=== PATIENT | male | born 1950 | race Caucasian/White ===

== ENCOUNTER 2023-02-16 07:14 | Emergency (ER) | payer MEDICARE, OTHER ==
[2023-02-16 07:52] LABS: BASOPHILS # (AUTO) 0.1 10^3/uL (0.0-0.1); BASOPHILS % (AUTO) 0.4 %; EOSINOPHILS % (AUTO) 0.1 %; HCT - HEMATOCRIT 36.8 % (42.0-52.0); HGB - HEMOGLOBIN 12.5 g/dL (14.0-18.0); LYMPHOCYTES # (AUTO) 1.2 10^3/uL (1.5-3.5); LYMPHOCYTES % (AUTO) 8.4 %; MEAN CORPUSCULAR VOLUME 94.1 fL (80.0-94.0); MEAN PLATELET VOLUME 8.4 fL (7.4-11.4); MONOCYTES # (AUTO) 1.3 10^3/uL (0.0-1.0); MONOCYTES % (AUTO) 9.2 %; NEUTROPHILS # (AUTO) 11.8 10^3/uL (1.5-6.6); NEUTROPHILS % (AUTO) 81.4 %; PLT - PLATELET COUNT 277 10^3/uL (130-450); RED BLOOD COUNT 3.91 10^6/uL (4.70-6.10); RED CELL DISTRIBUTION WIDTH 11.9 % (12.0-15.0); WHITE BLOOD COUNT 14.5 x10^3/uL (4.8-10.8)
[2023-02-16 08:08] LABS: ALBUMIN 3.4 g/dL (3.2-5.5); ALBUMIN/GLOBULIN RATIO 0.8 (1.0-2.2); BILIRUBIN,TOTAL 0.7 mg/dL (0.2-1.0); CALCIUM 8.9 mg/dL (8.5-10.3); CREATININE 1.7 mg/dL (0.6-1.2); POTASSIUM 3.7 mmol/L (3.5-5.0); TOTAL PROTEIN 7.9 g/dL (6.7-8.2)
[2023-02-16] MEDS ORDERED: LIDOCAINE VISCOUS 2% 15 ML ORAL SYRINGE MM STA ×3 (08:20→10:59)
[2023-02-16] MEDS ORDERED: SODIUM CHLORIDE 0.9% 1,000 ML IV STA (08:20)
[2023-02-16] MEDS ORDERED: MAG HYDROX/AL HYDROX/SIMETH 30 ML UDC PO STA ×3 (08:21→10:59)
--- NOTE | 2023-02-16 08:23 | ED Physician Documentation ---
PD HPI ABD PAIN - Stated complaint Stated Complaint: ABD PX - Chief complaint Chief Complaint: Abd Pain - History obtained from History obtained from: Patient, Family (brother) - History of Present Illness Timing - onset: How many weeks ago (1) Timing - duration: Weeks (1) Timing - details: Gradual onset, Still present Quality: Sharp, Pain Location: Epigastric Improved by: Other (nothing) Worsened by: Eating, Palpation Associated symptoms: Vomiting. No: Melena, Hematochezia, Dysuria, Chest pain Similar symptoms before: Diagnosis (ulcer/reflux) Recently seen: Not recently seen - Additional information Additional information: Andriy Mosley is a 72-year-old male with a history of reflux esophagitis who over the past week has developed epigastric abdominal pain and despite discontinuing his ibuprofen and appear he continues to have pain. He has been able to take 1 pantoprazole daily. Review of Systems Constitutional: denies: Fever, Chills Eyes: denies: Decreased vision Ears: denies: Ear pain Nose: denies: Rhinorrhea / runny nose, Congestion Throat: denies: Sore throat Cardiac: denies: Chest pain / pressure, Palpitations, Pedal edema, Calf pain Respiratory: reports: Cough (similar to always). denies: Dyspnea, Wheezing GI: reports: Abdominal Pain, Vomiting. denies: Constipation, Diarrhea, Hematemesis, Bloody / black stool : denies: Dysuria, Frequency Skin: denies: Rash Musculoskeletal: denies: Neck pain, Back pain, Extremity pain Neurologic: reports: Generalized weakness. denies: Focal weakness, Numbness PD PAST MEDICAL HISTORY - Past Medical History Past Medical History: Yes Respiratory: COPD Endocrine/Autoimmune: HyPOthyroidism GI: Ulcers Psych: Anxiety - Past Surgical History Past Surgical History: No Ortho: Hip replacement, Other - Present Medications Home Medications: Ambulatory Orders Medication Instructions Recorded Confirmed Fluticasone/Salmeterol [Advair Hfa 12 gm IH DAILY 02/16/23 02/16/23 230-21 Mcg Inhaler] Levothyroxine [Synthroid] 125 mcg PO QDAC 02/16/23 02/16/23 Pantoprazole [Protonix] 40 mg PO DAILY 02/16/23 02/16/23 Sucralfate [Carafate] 1 gm PO ACHS #60 tablet 02/16/23 hydrOXYzine HCL [Hydroxyzine HCl] 25 mg PO DAILY 02/16/23 02/16/23 - Allergies Allergies/Adverse Reactions: Allergies Allergy/AdvReac Type Severity Reaction Status Date / Time No Known Drug Allergies Allergy Verified 02/16/23 07:28 - Social History Does the pt smoke?: Yes Smoking Status: Current every day smoker PD ED PE NORMAL - Vitals Vital signs reviewed: Yes (tachy with wide pulse pressure) - General General: Alert and oriented X 3, Well developed/nourished, Other (bearded male with stick inserter tone and flattened affect needs assistance to sit up in bed for exam. ) - HEENT HEENT: Atraumatic, PERRL, EOMI, Other (dry mucous membranes ) - Neck Neck: Supple, no meningeal sign, No bony TTP - Cardiac Cardiac: No murmur, Other (tachy to 100) - Respiratory Respiratory: No respiratory distress, Clear bilaterally - Abdomen Abdomen: Normal bowel sounds, Soft, Non distended, No organomegaly, Other (mild epigastric tenderness without garding or rebound. ) - Back Back: No CVA TTP, No spinal TTP - Derm Derm: Normal color, Warm and dry, No rash, Other (skin tenting present is mild) - Extremities Extremities: No deformity, Normal ROM s pain, No edema - Neuro Neuro: No motor deficit, No sensory deficit, Normal speech - Psych Psych: Normal mood, Normal affect Results - Vitals Vitals: Vital Signs - 24 hr 02/16/23 02/16/23 02/16/23 07:26 07:39 09:32 Temperature 36.7 C Heart Rate 128 H 99 82 Respiratory 20 22 16 Rate Blood Pressure 122/59 L 121/70 156/86 H O2 Saturation 99 98 97 Oxygen O2 Source Room air - Labs Labs: Laboratory Tests 02/16/23 02/16/23 02/16/23 07:42 07:42 10:03 WBC 14.5 H RBC 3.91 L Hgb 12.5 L Hct 36.8 L MCV 94.1 H MCH 32.0 H MCHC 34.0 RDW 11.9 L Plt Count 277 MPV 8.4 Neut # (Auto) 11.8 H Lymph # (Auto) 1.2 L [place] # (Auto) 1.3 H Eos # (Auto) 0.0 Baso # (Auto) 0.1 Absolute Nucleated RBC 0.00 Nucleated RBC % 0.0 Sodium 127 L Potassium 3.7 Chloride 90 L Carbon Dioxide 25 Anion Gap 12.0 BUN 24 H Creatinine 1.7 H Estimated GFR (MDRD) 40 L Glucose 150 H Calcium 8.9 Total Bilirubin 0.7 AST 17 ALT 12 Alkaline Phosphatase 60 Total Protein 7.9 Albumin 3.4 Globulin 4.5 H Albumin/Globulin Ratio 0.8 L Lipase 31 Urine Color YELLOW Urine Clarity HAZY Urine pH 6.0 Ur Specific [place] <=1.005 Urine Protein 30 H Urine Glucose (UA) NEGATIVE Urine Ketones NEGATIVE Urine Occult Blood SMALL H Urine Nitrite NEGATIVE Urine Bilirubin NEGATIVE Urine Urobilinogen 0.2 (NORMAL) Ur Leukocyte Esterase SMALL H Urine RBC 0-5 Urine WBC 11-25 H Urine WBC Clumps PRESENT Ur Squamous Epith Cells NONE SEEN Urine Bacteria Few Ur Microscopic Review INDICATED Urine Culture Comments INDICATED Procedures - IVC sono (time) 0800 Bedside IVC sono: IVC measures (cm) (0.9), Dehydration (est 2 liter deficit) PD Medical Decision Making - ED course Complexity details: reviewed old records, reviewed results, re-evaluated patient, considered differential, d/w patient, d/w family Reviewed Lab Results: We reviewed a complete blood count which showed a mildly elevated white blood cell count of 14.5 a hemoglobin mildly depressed at 12.5 and hematocrit depressed at 36.8. Platelets were normal at 277,000, Electrolytes were remarkable for a serum sodium low at 127 BUN elevated at 24 creatinine elevated at 1.7. Liver function was normal urinalysis showed indication for infection and made grade or culture in a patient without urinary symptoms ED course: 72-year-old male with epigastric pain decreased appetite and pain after eating as well as some dry heaves has a history of peptic ulcer disease and has been taking ibuprofen regularly. He has regular consumption of alcohol. Despite stopping his alcohol and ibuprofen he continued to have this pain. He presented to the emergency department today we were able to administer a GI cocktail of viscous lidocaine and Mylanta with minimal improvement. He was subsequently administered Carafate with some further improvement. He then had a more definite improvement with a second dose of viscous lidocaine and he was administered further Carafate. He felt comfortable at the time of discharge. My interpretation of this is that the patient had some peptic ulcer disease that is worse with use of ibuprofen and I have asked the patient to discontinue the ibuprofen. We will add Carafate into his regimen. The patient was hydrated as well. He does have evidence of infection in the urine and no evidence of specific symptoms. This was not treated. A culture is pending. Departure - Departure Disposition: 01 Home, Self Care Clinical Impression: Peptic disease Condition: Stable Instructions: ED PUD Follow-Up: YARELI HADDAD MD [Primary Care Provider] - Prescriptions: Sucralfate [Carafate] 1 gm PO ACHS #60 tablet Comments: Andriy, today it looks like the pain you are having in your stomach is related to an ulcer or erosion of the stomach lining. We are adding into your treatment some Carafate. It has been e-scribed to the [facility] in [place]. You will need to take this half an hour before you eat and at bedtime. This is a type of "Band-Aid" for your stomach. It is imperative to discontinue the ibuprofen. Continue to take your pantoprazole. A follow up with your doctor is indicated. If you are not improving or worsen we are here. . Discharge Date/Time: 02/16/23 12:29
[2023-02-16] MEDS ORDERED: iohexoL-300 100 ML VIAL ONE (08:28)
[2023-02-16] MEDS ORDERED: SUCRALFATE 1 GM/10 ML UDC PO STA ×2 (08:50→12:05)
[2023-02-16 09:34] VITALS: BP 156/86
--- NOTE | 2023-02-16 09:35 | CT Report ---
PROCEDURE: ABDOMEN/PELVIS W INDICATIONS: epigastric pain CONTRAST: 100ml Omnipaque 300 TECHNIQUE: After the administration of weight appropriate dose of intravenous contrast, 5 mm thick sections acqu ired from the diaphragms to the symphysis. 5 mm thick coronal and sagittal reformats were acquired. For radiation dose reduction, the following was used: automated exposure control, adjustment of mA and/or kV according to patient size. COMPARISON: None. FINDINGS: Image quality: Excellent. Lung bases and heart: Bilateral centrilobular pulmonary emphysematous changes. Mild bibasilar atelect asis. Small hiatal hernia. Heart size appears normal. No pericardial effusion. Liver: No solid mass. Gallbladder and biliary tree: No radiopaque stones or wall thickening. No biliary dilation. Spleen: No splenomegaly. Pancreas: No pancreatic ductal dilation. Adrenals: No adrenal nodule. Kidneys and ureters: No hydronephrosis. No renal cystic lesion which requires follow up. No solid mas s. Bowel and peritoneum: No bowel distension. No pathologic free fluid. Diverticulosis without evidence of diverticulitis. A few loops of fluid-filled small bowel without evidence for acute inflammatory ch anges or obstruction. Lymph nodes: No central or retroperitoneal adenopathy. Vessels: No infrarenal aortic aneurysm. Scattered atherosclerotic calcifications. PELVIS Reproductive organs: Mild prominence of the prostate gland. Bladder: No wall thickness, accounting for underdistension. Pelvic lymph nodes: No pelvic adenopathy by size criteria. Bones: No aggressive osseous abnormality. No acute compression fracture. Multilevel spondylosis. Stat us post ORIF of the right femoral neck. Other: No significant ventral or inguinal hernia. Small fat-containing umbilical hernia without acute inflammation. IMPRESSION: 1. CT abdomen and pelvis without acute abnormalities to explain patient's symptoms. No acute inflamma tory changes of the visualized gallbladder or pancreas. 2. Small hiatal hernia. 3. Colonic diverticulosis without acute diverticulitis. 4. A few loops of fluid-filled small bowel without wall thickening or inflammatory change. This is no nspecific and may represent enteritis, either infectious or inflammatory process. 5. Atherosclerosis. 6. Pulmonary emphysematous changes. 7. Other chronic findings as above. Reviewed by: Felipe Houser MD on 02/16/2023 9:34 AM PDT Approved by: Felipe Houser MD on 02/16/2023 9:34 AM PDT Station ID: [id number]
[2023-02-16] MEDS ORDERED: iohexoL-300 100 ML VIAL IVP ONE (10:02)
[2023-02-16 10:13] LABS: BILIRUBIN,URINE NEGATIVE (NEGATIVE); GLUCOSE, URINE (UA) NEGATIVE (NEGATIVE); KETONES,URINE (UA) NEGATIVE (NEGATIVE); LEUKOCYTE ESTERASE, URINE SMALL (NEGATIVE); NITRITE,URINE NEGATIVE (NEGATIVE); OCCULT BLOOD,URINE SMALL (NEGATIVE); PROTEIN,URINE 30 mg/dL (NEGATIVE); UROBILINOGEN,URINE 0.2 (NORMAL) E.U./dL (NORMAL)
[2023-02-16 10:14] LABS: CLARITY,URINE HAZY (CLEAR)
[2023-02-16 10:25] LABS: BACTERIA,URINE Few /HPF (None Seen); RBC,URINE 0-5 /HPF (0-5); SQUAMOUS EPITHELIAL CELL,UR NONE SEEN (<= Few); WBC CLUMPS,URINE PRESENT
--- NOTE | 2023-02-18 14:02 | MISCELLANEOUS PROVIDER NOTE ---
Miscellaneous Provider Note - - Note: Reviewed urine culture results with patient. Discussed plan for antibiotic treatment. He is agreeable. Prescription was sent to [facility] in [place]
== END 2023-02-16 12:29 | disposition home or self-care (01) ==
LOC: ED 07:14
DX: K30 Functional dyspepsia (principal); F17.200 Nicotine dependence, unspecified, uncomplicated
CPT/HCPCS: 36415; 74177; 80053; 81001; 83690; 85025; 87086; 96360; 99284; A9270; Q9967; 81003; 87077

== ENCOUNTER 2024-03-01 10:49 | Outpatient (CLI) | payer MEDICARE, OTHER | END 2024-03-01 10:50 | disposition home or self-care (01) | LOC: RT 10:49 | PROVIDERS: ATTEND Internal Medicine Critical Care Medicine | DX: J44.9 Chronic obstructive pulmonary disease, unspecified (principal); J98.11 Atelectasis | CPT/HCPCS: 94060; 94727; 94729 ==

== ENCOUNTER 2025-09-19 17:28 | Inpatient (IN) ==
[2025-09-19 17:55] LABS: HCT - HEMATOCRIT 35.8 % (42.0-52.0); HGB - HEMOGLOBIN 11.8 g/dL (14.0-18.0); MEAN PLATELET VOLUME 9.2 fL (7.4-11.4); NRBC ABSOLUTE COUNT (AUTO) 0.00 x10^3/uL; NUCLEATED RED BLOOD CELLS AUTO 0.0 /100WBC; PLT - PLATELET COUNT 242 10^3/uL (130-450); RED CELL DISTRIBUTION WIDTH 13.2 % (12.0-15.0)
--- OUTSIDE RECORDS SUMMARY | 2025-09-19 17:55 | EXTERNAL MEDICAL SUMMARY RPT | Continuity of Care Document ---
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 [facility] 2025-07-30 09:59 Alcohol-induced chronic pancrea titis [facility] 2025-07-30 10:01 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 [facility] 2025-07-30 10:01 Alcohol-induced chronic pancrea [facility] 2025-07-30 11:04 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 CREATININE 2025-07-30 10:00 [facility] 1.2 mg/dl As of April 2023 testing method has changed, this may include reference ranges. ALBUMIN/GLOBULIN RATIO 2025-07-30 10:00 [facility] 1.3 (missing) (missing) CHLORIDE 2025-07-30 10:00 [facility] 103 mmol/l As of April 2023 testing method has changed, this may include reference ranges. ALT ALANINE AMINOTRANSFERASE 2025-07-30 10:00 [facility] 11 iu/l As of April 2023 testing method has changed, this may include reference ranges. AMYLASE 2025-07-30 10:00 [facility] 124 u/l As of April 2023 testing method has changed, this may include reference ranges. AST ASPARTATE AMINOTRANSFERASE 2025-07-30 10:00 [facility] 13 iu/l As of April 2023 testing method has changed, this may include reference ranges. SODIUM 2025-07-30 10:00 [facility] 137 mmol/l Unknown BUN - BLOOD UREA NITROGEN 2025-07-30 10:00 [facility] 21 mg/dl As of Apr testing method has changed, this may include reference ranges. LIPASE 2025-07-30 10:00 [facility] 21 u/l As of April 2023 testing method has changed, this may include reference ranges. CARBON DIOXIDE - CO2 2025-07-30 10:00 [facility] 28 mmol/l As of April 2023 testing method has changed, this may include reference ranges. GLOBULIN 2025-07-30 10:00 [facility] 3.2 g/dl (missing) ALBUMIN 2025-07-30 10:00 [facility] 4.3 g/dl As of April 2023 testing method has changed, this may include reference ranges. POTASSIUM 2025-07-30 10:00 [facility] 4.5 mmol/l As of April 2023 testing method has changed, this may include reference ranges. GFR - MDRD 2025-07-30 10:00 [facility] 59 (in g) The IDMS-traceable MDRD Study Equation has been validated extensively in and populations between the ages of 18 and 70 with impaired kidney function (eGFR < 60 mL/min/1.73m2) and has shown good performance for patients with all common causes of kidney disease. Although this equation has not been validated for patients older than 70, an MDRD-derived eGFR may still be a useful tool for providers caring for patients older than 70. References: http://www.nkdep. nih.gov/lab-evalu ation/gfr/creatin ine-stand ardization, last updated December 2011. ANION GAP 2025-07-30 10:00 [facility] 6.0 (missing ) (missing) ALKALINE PHOSPHATASE 2025-07-30 10:00 [facility] 63 iu/l As of April 2023 testing method has changed, this may include reference ranges. TOTAL PROTEIN 2025-07-30 10:00 [facility] 7.5 g/dl As of April 2023 testing method has changed, this may include reference ranges. CALCIUM 2025-07-30 10:00 [facility] 9.8 mg/dl As of April 2023 testing method has changed, this may include reference ranges. GLUCOSE 2025-07-30 10:00 [facility] 90 mg/dl As of April 2023 testing method has changed, this may include reference ranges. Result panel 2 MISC TEST [facility] 2025-07-30 13:00 [facility] COMMENT (missing) [id number] PANCREATIC ELASTASE, FECAL Test Ordered: [id number] Pancreatic Elastase, Fecal Pancreatic Elastase, Fecal >800 [facility] Units of Measure: ug Elast./g Reference Range: >200 Severe Pancreatic Insufficiency: <100 Moderate Pancreatic Insufficiency: 100 - 200 Normal: >200 Performed at: [facility], [place] [id number] Associate Merchandiser: Germain Allen MD, Phone: [phone] Performed at: [facility], [place], [place] [id number] Associate Merchandiser: Avi Wise MD, Phone: [phone] Social History date description facility
[2025-09-19 18:08] LABS: ALT ALANINE AMINOTRANSFERASE 8.0 IU/L (10-60); AST ASPARTATE AMINOTRANSFERASE 11.0 IU/L (10-42); BUN - BLOOD UREA NITROGEN 46.0 mg/dL (6-20); CARBON DIOXIDE - CO2 23.0 mmol/L (21-32); CREATININE 1.4 mg/dL (0.6-1.3); GFR - MDRD 50.0 (>89)
[2025-09-19] MEDS: SODIUM CHLORIDE 0.9% 1,000 ML IV STA ×2 (18:53→21:27)
[2025-09-19] MEDS: ONDANSETRON 4 MG/2 ML VIAL IVP STA ×2 (18:57→21:16)
[2025-09-19] MEDS: MORPHINE 2 MG/ML CARPUJECT IVP STA ×2 (19:33)
[2025-09-19] MEDS: HYDROmorphone 0.5 MG/0.5 ML SYRINGE IVP STA (19:44)
--- NOTE | 2025-09-19 19:53 | CT Report ---
PROCEDURE: CT Abdomen/Pelvis W INDICATIONS: epigastric pain, hx of pancreatitis CONTRAST: [id number] 100ML TECHNIQUE: After the administration of intravenous contrast, a CT scan of the abdomen and pelvis was performed. Images were recorded and evaluated at appropriate window settings. Reformats: coronal and sagittal. For radiation dose reduction, the following was used: automated exposure control, adjustment of mA and/or kV according to patient size. COMPARISON: 05/27/2025 FINDINGS: Image quality: Diagnostic. Lower chest: Emphysematous changes at the lung bases. Liver: No solid mass. Gallbladder: No radiopaque stones or wall thickening. Biliary tree: No intrahepatic or extrahepatic dilation, accounting for age. Spleen: No splenomegaly. Pancreas: Mildly indistinct pancreatic margin may indicate acute inflammation. Otherwise uniform enhancement. No ductal dilatation or calcifications. No peripancreatic fat stranding. Adrenals: No adrenal nodule. Kidneys and ureters: Symmetric enhancement. No hydronephrosis or nephrolithiasis. No solid mass or cyst requiring follow-up. Bilateral renal cysts. Normal ureters. Stomach, bowel and peritoneum: Stomach and small bowel are normal. Sigmoid diverticulosis. Distal colon is otherwise in spasm. Mild mucosal hyperemia involving the ascending and proximal transverse colon. No significant colon wall thickening. No pathologic free fluid. Lymph nodes: No central or retroperitoneal adenopathy. Vessels: Moderate abdominal aortic calcification. Normal caliber abdominal aorta, IVC, and portal vein. PELVIS Reproductive organs: Enlarged prostate gland. Bladder: Mild diffuse urinary bladder wall thickening. No calcifications. Pelvic lymph nodes: No pelvic adenopathy by size criteria. Bones: Right hip pinning. Bilateral hip joint degeneration and moderate endplate spurring in the spine. Other: Bilateral hydroceles. IMPRESSION: Indistinct pancreatic margin may indicate acute pancreatitis. Correlate with lipase. Mild mucosal hyperemia in the proximal colon may indicate colitis. Urinary bladder wall thickening likely due to chronic outlet obstruction given prostatomegaly. Reviewed by: Jane Ríos MD on 09/19/2025 7:50 PM PST Approved by: Jane Ríos MD on 09/19/2025 7:50 PM PST Station ID: [id number]
[2025-09-19 21:15] LABS: KETONES,URINE (UA) NEGATIVE (NEGATIVE); OCCULT BLOOD,URINE NEGATIVE (NEGATIVE)
[2025-09-19] MEDS: DROPERIDOL 5 MG/2 ML VIAL IVP STA (21:18)
[2025-09-19] MEDS: PANTOPRAZOLE 40 MG VIAL IVP STA (21:20)
[2025-09-19 21:23] LABS: GLUCOSE, URINE (UA) NEGATIVE (NEGATIVE); SQUAMOUS EPITHELIAL CELL,UR RARE Squamous (<= Few); WBC CLUMPS,URINE PRESENT
--- NOTE | 2025-09-19 21:57 | ED Physician Documentation ---
History of Present Illness Stated complaint Stated Complaint: ABD PX Chief complaint Chief Complaint: Abd Pain History obtained from History obtained from: Patient History of Present Illness Timing: Prior to arrival Treatment prior to arrival Treatment prior to arrival: Patient is a 75-year-old male presenting to the emergency department with abdominal pain nausea vomiting and multiple episodes of diarrhea. Symptoms started shortly prior to arrival. Patient has been seen in the past for history of pancreatitis first diagnosed back in May after he was having recurrent nausea vomiting and significantly elevated lipase level. He has no fevers or chills. His pain is in his epigastric region no hematemesis or blood in his stool. He had episode of lightheadedness at home and believes he passed out. He has not taken anything for his symptoms. He denies any recent alcohol use. He takes pantoprazole at home for gastritis but denies any recent use. He has no history of abdominal surgeries. Meds/Allgy Home Medications Ambulatory Orders Medication Instructions Recorded Confirmed hydroxyzine HCl 25 mg tablet 25 mg PO DAILY PRN sleep and 02/16/23 05/27/25 anxiety pantoprazole 40 mg tablet,delayed 40 mg PO DAILY 02/1605/27/25 release azelastine 137 mcg (0.1 %) nasal 1 spray intranasal Q6 HR PRN 05/27/25 05/27/25 spray allergy symptoms fluticasone furoate 100 1 inh inhalation DAILY 05/2705/27/25 mcg/actuation blister powder for inhalation (Arnuity Ellipta) levothyroxine 112 mcg tablet 112 mcg PO DAILY 05/27/25 05/27/25 losartan 100 mg tablet 100 mg PO DAILY 05/27/2509/10 umeclidinium 62.5 mcg/actuation 1 inh inhalation DAILY 05/27/25 05/27/25 blister powder for inhalation (Incruse Ellipta) ondansetron HCl 4 mg tablet 4 mg PO Q8H #30 tabs 05/30 oxycodone 5 mg tablet 5 mg PO BID PRN pain #7 tabs 05/30/25 vit,calcium 27-ferrous 1 tab PO DAILYWM #30 t abs 05/30/25 fum 60 mg iron-folic acid 1 mg tablet (Trinatal Rx 1) thiamine mononitrate (vit B1) 100 100 mg PO DAILY #30 tabs 05/30/25 mg tablet (Vitamin B-1 (mononitrate)) Allergies Allergies Allergy/AdvReac Type Severity Reaction Status Date / Time No Known Drug Allergies Allergy Verified 09/19/25 17:41 PFSH Active Problems All Active Problems (Updated 09/19/25 @ 21:48 by ) Diarrhea (Acute) Abdominal pain (Acute) Vomiting (Acute) Do not resuscitate (Acute) Alcohol abuse (Acute) Pancreatitis (Acute) Medical History Medical History (Updated 09/19/25 @ 21:48 by ) Hypothyroid Emphysema lung Severe airway obstruction and a diffusion defect present on PFTs February 2024. Absence of overinflation suggested concurrent restrictive process. Responded nicely to bronchodilators. At that time studies with exercise would be helpful to evaluate for hypoxemia. O2 sat at rest was 98%. O2 sat with exertion was 96%. He did get tachycardic walking 400 feet and his pulse was up to 120. OA (osteoarthritis) of hip Novoa esophagus GERD (gastroesophageal reflux disease) HTN (hypertension) Surgical History Surgical History History of esophagogastroduodenoscopy (EGD) Hip joint replacement status Family History Family History (Updated 05/27/25 @ 18:37 by Althea Fall MD) Father No problems noted. Mother No problems noted. Brother Family history unknown Sister No problems noted. Sister Family history unknown Social History Social History (Updated 05/27/25 @ 18:21 by Althea Fall MD) Smoking Status: Unknown if ever smoked If you are a former smoker, when did you quit? (Date/Year): 2023 Number of Years Smoked: 60 How many cigarettes a day do you smoke? (20 cigarettes=1 Pk): 30 Do you dip or chew tobacco?: No Do you vape?: No Living arrangement: At home Marital Status: Single Living Condition: With family Support Person: Yes Living Situation Details: Brother is legal DPOA. 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[place], [place] for 20 yrs Retired: Yes Service: No POLST Patient has POLST: No Exam Exam Vital Signs: Vital Signs x48h Temp Pulse Resp BP Pulse Ox 09/19/25 21:00 62 14 130/81 96 09/19/25 19:40 78 18 116/62 95 09/19/25 17:35 36 C L 69 14 124/70 98 Constitutional normal general appearance HENMT normocephalic and head/scalp atraumatic Eyes PERRL, EOMs intact bilaterally and conjunctivae normal Neck/C-Spine visual inspection normal Lymph no lymphadenopathy noted Chest inspection of chest normal Respiratory breath sounds equal bilaterally, normal respiratory effort and clear to auscultation bilaterally Cardiovascular normal heart rate noted and regular rhythm noted Gastrointestinal Reproducible abdominal pain on palpation. Active bowel sounds appreciated. Results Vitals Vitals: Vital Signs - 24 hr 09/19/25 17:35 09/19/25 19:33 09/19/25 19:33 Temperature 36 C L Pulse Rate 69 Respiratory Rate 14 Blood Pressure 124/70 O2 Saturation 98 O2 Source Room air Pain Intensity 8 8 8 09/19/25 19:40 09/19/25 19:44 09/19/25 21:00 Temperature Pulse Rate 78 62 Respiratory Rate 18 14 Blood Pressure 116/62 130/81 O2 Saturation 95 96 O2 Source Room air Room air Pain Intensity 8 8 5 09/19/25 21:15 Temperature Pulse Rate Respiratory Rate Blood Pressure O2 Saturation O2 Source Pain Intensity 5 Oxygen O2 Source Room air EKG (time done) 2154: EKG releavant findings:: EKG personally interpreted by author of this note. Relevant findings are: Rate: Rate (enter#) (63 bpm) Rhythm: NSR [place]: Normal Intervals: Other (short MN) QRS: QRS normal Compare to prior EKG: Changed from prior EKG Computer interpretation: Agree with computer Labs Labs: Laboratory Tests 09/19/25 09/19/25 17:49 20:44 WBC 13.6 H RBC 3.87 L Hgb 11.8 L Hct 35.8 L MCV 92.5 MCH 30.5 MCHC 33.0 RDW 13.2 Plt Count 242 MPV 9.2 Neut # (Auto) 11.2 H Lymph # (Auto) 1.4 L [place] # (Auto) 0.8 Eos # (Auto) 0.1 Baso # (Auto) 0.1 Absolute Nucleated RBC 0.00 Nucleated RBC % 0.0 Sodium 136 Potassium 4.4 Chloride 106 Carbon Dioxide 23 Anion Gap 7.0 BUN 46 H Creatinine 1.4 H Estimated GFR (MDRD) 50 L Glucose 116 H Calcium 9.0 Total Bilirubin 0.3 AST 11 ALT 8 L Alkaline Phosphatase 64 Total Protein 6.9 Albumin 4.0 Globulin 2.9 Albumin/Globulin Ratio 1.4 Lipase 20 Urine Color YELLOW Urine Clarity CLEAR Urine pH 6.0 Ur Specific Ernest 1.010 Urine Protein NEGATIVE Urine Glucose (UA) NEGATIVE Urine Ketones NEGATIVE Urine Occult Blood NEGATIVE Urine Nitrite POSITIVE H Urine Bilirubin NEGATIVE Urine Urobilinogen 0.2 (NORMAL) Ur Leukocyte Esterase SMALL H Urine RBC 0-5 Urine WBC 11-25 H Urine WBC Clumps PRESENT Ur Squamous Epith Cells RARE Squamous Urine Bacteria Many H Ur Microscopic Review INDICATED Urine Culture Comments INDICATED PD Medical Decision Making ED course Complexity details: reviewed old records and reviewed results ED course: Patient is a 75-year-old male presenting with abdominal pain nausea vomiting lightheadedness episodes. To coming to the ED. Multiple bowel movements and vomiting prior to coming and history of pancreatitis but denies any drinking since then. Vital stable on room arrival he has a white count of 13. In the ED with hemoglobin of 11.8 CMP shows mild TAJ with GFR of 50 baseline closer to 60 he has urine that is positive for nitrites and leukocyte esterase and 11-25 leukocytes concerning for UTI. Patient started on antibiotics he was given Dilaudid morphine fluids and Zofran for symptoms but no significant relief. Patient be given pantoprazole droperidol and morphine as for his symptoms but no improvement in symptoms and he will be admitted to hospitalist for monitoring pain control and nausea control. Discharge Plan Discharge Patient Disposition: 67 [facility] DC/Xfer Condition: Good Clinical Impression: Alcohol abuse, Vomiting, Abdominal pain, Diarrhea Pancreatitis Qualifiers: Chronicity: acute Pancreatitis type: alcohol induced Acute pancreatitis complication: no infection or necrosis Qualified Code(s): K85.20 - Alcohol induced acute pancreatitis without necrosis or infection
--- NOTE | 2025-09-19 22:01 | HISTORY & PHYSICAL EXAMINATION ---
Chief Complaint Chief Complaint Chief Complaint: abdominal pain History of Present Illness History Obtained From Exam Limitations: telemedicine, patient hard of hearing History of Present Illness HPI Comment/Other: 75yoM with a history of COPD, GERD, ETOH abuse. He presented with abdominal pain and nausea that started the day prior to presentation. He describe the pain as cramping. pain was initially generalized but then localized to the epigastric area. he has had nausea/vomitting and diarrhea assoicated with the abdominal pain. He has had poor oral intake adn has felt increasingly weak and lightheaded. he has not had any recent sick contacts. he denies fevers or chills. CT demonstrated findings consistent with acute pancreatitis. He states his last drink was 4 months ago. This visit was performed using telehealth tools, including phone and live-video. patient provided verbal consent to complete this telemedicine encounter. During the time my interview and evaluation, the patient was located at [facility] in the [facility], I was located in [place]. Meds/Allgy Home Medications Ambulatory Orders Medication Instructions Recorded Confirmed hydroxyzine HCl 25 mg tablet 25 mg PO DAILY PRN sleep and 02/16/23 05/27/25 anxiety pantoprazole 40 mg tablet,delayed 40 mg PO DAILY 02/1605/27/25 release azelastine 137 mcg (0.1 %) nasal 1 spray intranasal Q6 HR PRN 05/27/25 05/27/25 spray allergy symptoms fluticasone furoate 100 1 inh inhalation DAILY 05/2705/27/25 mcg/actuation blister powder for inhalation (Arnuity Ellipta) levothyroxine 112 mcg tablet 112 mcg PO DAILY 05/27/25 05/27/25 losartan 100 mg tablet 100 mg PO DAILY 05/27/2509/10 umeclidinium 62.5 mcg/actuation 1 inh inhalation DAILY 05/27/25 05/27/25 blister powder for inhalation (Incruse Ellipta) ondansetron HCl 4 mg tablet 4 mg PO Q8H #30 tabs 05/30 oxycodone 5 mg tablet 5 mg PO BID PRN pain #7 tabs 05/30/25 vit,calcium 27-ferrous 1 tab PO DAILYWM #30 t abs 05/30/25 fum 60 mg iron-folic acid 1 mg tablet (Trinatal Rx 1) thiamine mononitrate (vit B1) 100 100 mg PO DAILY #30 tabs 05/30/25 mg tablet (Vitamin B-1 (mononitrate)) Allergies Allergies Allergy/AdvReac Type Severity Reaction Status Date / Time No Known Drug Allergies Allergy Verified 09/19/25 17:41 PFSH Active Problems All Active Problems (Updated 09/19/25 @ 21:48 by ) Diarrhea (Acute) Abdominal pain (Acute) Vomiting (Acute) Do not resuscitate (Acute) Alcohol abuse (Acute) Pancreatitis (Acute) Medical History Medical History (Updated 09/19/25 @ 21:48 by ) Hypothyroid Emphysema lung Severe airway obstruction and a diffusion defect present on PFTs February 2024. Absence of overinflation suggested concurrent restrictive process. Responded nicely to bronchodilators. At that time studies with exercise would be helpful to evaluate for hypoxemia. O2 sat at rest was 98%. O2 sat with exertion was 96%. He did get tachycardic walking 400 feet and his pulse was up to 120. OA (osteoarthritis) of hip Novoa esophagus GERD (gastroesophageal reflux disease) HTN (hypertension) Surgical History Surgical History History of esophagogastroduodenoscopy (EGD) Hip joint replacement status Family History Family History (Updated 05/27/25 @ 18:37 by Althea Fall MD) Father No problems noted. Mother No problems noted. Brother Family history unknown Sister No problems noted. Sister Family history unknown Social History Social History (Updated 05/27/25 @ 18:21 by Althea Fall MD) Smoking Status: Unknown if ever smoked If you are a former smoker, when did you quit? (Date/Year): 2023 Number of Years Smoked: 60 How many cigarettes a day do you smoke? (20 cigarettes=1 Pk): 30 Do you dip or chew tobacco?: No Do you vape?: No Living arrangement: At home Marital Status: Single Living Condition: With family Support Person: Yes Living Situation Details: Brother is legal DPOA. 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 Constitutional normal general appearance and no apparent distress Eyes PERRL and EOMs intact bilaterally Respiratory breath sounds equal bilaterally Cardiovascular normal heart rate noted and regular rhythm noted Gastrointestinal abdomen normal to inspection, tender to palpation, tender to percussion and nondistended Psychiatry oriented x3 Conclusion/Plan Problem List (1) Pancreatitis: Plan: acute epigastric pain of 1 day duration, associated with N/V/D afebrile -CT abdomen reviewed showing indistinct pancreatic margin concerning for inflammation, consistent with acute pancreatitis -lipase within normal limits -will continue with conservative management: IV fluids, NS 125cc/hr, antiemetic zofran 4mg , pain management, Dilaudid 0.5 q3h prn for severe pain. -currently NPO due to GI intolerence, will advance diet as tolerated after 12 hours of bowel rest Qualifiers: Acute pancreatitis complication: no infection or necrosis Chronicity: a cute Pancreatitis type: alcohol induced Qualified Code(s): K85.20 - Alcohol induced acute pancreatitis without necrosis or infection (2) Emphysema lung: Plan: home medications reviewed -will resume (3) Hypothyroid: Plan: home medication reveiwed, resume when oral intake maintained Qualifiers: Hypothyroidism type: unspecified Qualified Code(s): E03.9 - Hypothyroidism, unspecified (4) GERD (gastroesophageal reflux disease): Plan: resume antiacid Qualifiers: Esophagitis presence: esophagitis presence not specified Qualified Code(s): K21.9 - Gastro-esophageal reflux disease without esophagitis Plan Patient will be admitted to the hospitalist service under outpatient-observation status. less than 2 midnights expected for management. Lab Results 09/19/25 17:49 09/19/25 17:49 Core Measures Anticipated LOS I expect patient to be DC'd or transferred within 96 hours.: Yes DVT/VTE - Prophylaxis VTE/DVT Device ordered at admit?: Yes
[2025-09-19] MEDS: HYDROmorphone 0.5 MG/0.5 ML SYRINGE IVP PRN (22:50)
[2025-09-19] MEDS: SODIUM CHLORIDE FLUSH 0.9% 10 ML SYRINGE IVP SCH (22:51)
[2025-09-19] MEDS: SODIUM CHLORIDE 0.9% 1,000 ML IV SCH (22:51)
[2025-09-19] MEDS: FAMOTIDINE 20 MG/2 ML VIAL IVP SCH (22:51)
[2025-09-19] MEDS: cefTRIAXone 1 GM VIAL IVP SCH (22:54)
[2025-09-20] MEDS: ACETAMINOPHEN 1,000 MG/100 ML 1,000 MG/100 ML BAG IV PRN (04:37)
[2025-09-20] MEDS: HEPARIN 5,000 UNIT/ML VIAL SUBQ SCH (08:59)
[2025-09-20] MEDS: ONDANSETRON 4 MG/2 ML VIAL IVP PRN (08:59)
[2025-09-20] MEDS: LEVOTHYROXINE 112 MCG TABLET PO SCH (09:00)
[2025-09-20] MEDS: FAMOTIDINE 20 MG/2 ML VIAL IVP SCH (09:59)
--- NOTE | 2025-09-20 10:10 | PHARMACY PROGRESS NOTE ---
Best Possible Medication History Admit Date and Time: 09/19/25 2139 Home Medications Medication Instructions Recorded Confirmed Type hydroxyzine HCl 25 mg tablet 25 mg PO TID PRN sleep an d anxiety 02/16/23 09/20/25 History pantoprazole 40 mg tablet,delayed 40 mg PO BID 3 09/20/25 History release azelastine 137 mcg (0.1 %) nasal 1 spray intranasal Q6 HR PRN 05/27/25 09/20/25 History spray allergy symptoms fluticasone furoate 100 1 inh inhalation DAILY 05/2709/20/25 History mcg/actuation blister powder for inhalation (Arnuity Ellipta) levothyroxine 112 mcg tablet 112 mcg PO QDAC 05/27/25 09/20/25 History losartan 100 mg tablet 100 mg PO DAILY 05/27/2503/10 History umeclidinium 62.5 mcg/actuation 1 inh inhalation DAILY 05/27/25 09/20/25 History blister powder for inhalation (Incruse Ellipta) albuterol sulfate 90 mcg/actuation 1 - 2 inh inhalatio n Q6H PRN COPD 09/20/25 09/20/25 History aerosol inhaler duloxetine 30 mg capsule,delayed 30 mg PO DAILY 09/20/25 History release Processed by: Pharmacy Medications reviewed in ED?: No Medication History completed: Yes Patient Interview: Completed Secondary Source(s): Pharmacy records and Insurance records [facility] Statement: As the person ultimately responsible for medication therapy, providers are able to order a medication from an existing home medication list in [facility] via the "Reconcile Routine" prior to Confirmation of that medication by production support supervisor. Such practice is discouraged except when the physician, in their clinical judgment, deems that a medical need exists for a medication without regard to previous use.
[2025-09-20] MEDS: MAG HYDROX/AL HYDROX/SIMETH 30 ML UDC PO PRN (11:16)
--- NOTE | 2025-09-20 14:19 | PROVIDER PROGRESS NOTE ---
Subjective Prog Note Date Prog Note Date: 09/20/25 Subjective Pt reports feeling: Improved Current Medications Current Medications Current Medications: Current Medications Generic Name Dose Route Start Last Admin Trade Name Freq PRN Reason Stop Dose Admin Al Hydroxide/Mg Hydroxide 30 ml 09/20/25 10:22 09/20/25 11:16 Mag Hydrox/Al Hydrox/Simeth 30 Ml Udc PO 30 ml Q4HR PRN Administration INDIGESTION Ceftriaxone Sodium 1 gm 09/19/25 22:04 09/19/25 22:54 Ceftriaxone 1 Gm Vial IVP 1 gm HS ИРИНА Administration Famotidine 20 mg 09/20/25 10:00 09/20/25 09:59 Famotidine 20 Mg/2 Ml Vial IVP 20 mg DAILY ИРИНА Administration Heparin Sodium (Porcine) 5,000 unit 09/20/25 09:00 09/20/25 08:59 Heparin 5,000 Unit/Ml Vial SUBQ Not Given BID ИРИНА Hydromorphone HCl 0.5 mg 09/19/25 22:24 09/20/25 14:05 Hydromorphone 0.5 Mg/0.5 Ml Syringe IVP 0.5 mg Q3H PRN Administration Pain 8 to 10 Sodium Chloride 1,000 mls @ 125 mls/hr 09/19/25 22:24 09/20/25 13:26 Normal Saline 0.9% IV 125 mls/hr .Q8H ИРИНА Administration Acetaminophen 1,000 mg in 100 mls @ 400 mls/hr 09/19/25 22:24 09/20/25 05:00 Acetaminophen IV Infused Q6HR PRN Infusion Moderate Pain (Level 4-6) Levothyroxine Sodium 112 mcg 09/21/25 07:00 Levothyroxine 112 Mcg Tablet PO QDAC ИРИНА Ondansetron HCl 4 mg 09/19/25 22:24 09/20/25 12:57 Ondansetron 4 Mg/2 Ml Vial IVP 4 mg Q6HR PRN Administration Nausea / Vomiting Sodium Chloride 10 ml 09/19/25 22:24 Sodium Chloride Flush 0.9% 10 Ml Syringe IVP PRN PRN NEEDED PER PROVIDER ORDERS Sodium Chloride 10 ml 09/20/25 01:00 09/20/25 09:00 Sodium Chloride Flush 0.9% 10 Ml Syringe IVP Not Given 0100,0900,1700 [facility] Objective Vital Signs/Intake & Output Reviewed Vital Signs: Yes Vital Signs: Vital Signs x48h Temp Pulse Resp BP Pulse Ox 09/20/25 13:53 97.7 F 62 18 123/61 95 09/20/25 08:05 97.7 F 73 20 126/53 L 96 Intake & Output: Intake & Output 09/17/25 09/18/25 09/19/25 09/20/25 23:59 23:59 23:59 23:59 Intake Total 1000 / 1000 2661 / 2661 Output Total 1000 / 1000 Balance 1000 / 1000 1661 / 1661 Weight (kg) 72.5 kg Objective General Appearance: positive No acute distress and Alert Eyes Bilateral: positive Normal inspection ENT: positive ENT inspection nml Neck: positive Nml inspection Respiratory: positive Chest non-tender and No respiratory distress Cardiovascular: positive Regular rate & rhythm Abdomen: negative Non-tender Skin: positive Color nml Extremities: positive Non-tender Neurologic/Psychiatric: positive Oriented x3 Lab Results 09/19/25 17:49 09/19/25 17:49 Other Labs: Lab Results x24hrs 09/19/25 09/19/25 Range/Units 20:44 17:49 WBC 13.6 H (4.8-10.8) x10^3/uL RBC 3.87 L (4.70-6.10) 10^6/uL Hgb 11.8 L (14.0-18.0) g/dL Hct 35.8 L (42.0-52.0) % MCV 92.5 (80.0-94.0) fL MCH 30.5 (27.0-31.0) pg MCHC 33.0 (32.0-36.0) g/dL RDW 13.2 (12.0-15.0) % Plt Count 242 (130-450) 10^3/uL MPV 9.2 (7.4-11.4) fL Neut # (Auto) 11.2 H (1.5-6.6) 10^3/uL Lymph # (Auto) 1.4 L (1.5-3.5) 10^3/uL [place] # (Auto) 0.8 (0.0-1.0) 10^3/uL Eos # (Auto) 0.1 (0.0-0.7) 10^3/uL Baso # (Auto) 0.1 (0.0-0.1) 10^3/uL Absolute Nucleated RBC 0.00 x10^3/uL Nucleated RBC % 0.0 /100WBC Sodium 136 (135-145) mmol/L Potassium 4.4 (3.5-4.5) mmol/L Chloride 106 (101-111) mmol/L Carbon Dioxide 23 (21-32) mmol/L Anion Gap 7.0 (6-13) BUN 46 H (6-20) mg/dL Creatinine 1.4 H (0.6-1.3) mg/dL Estimated GFR (MDRD) 50 L (>89) Glucose 116 H (74-104) mg/dL Calcium 9.0 (8.5-10.3) mg/dL Total Bilirubin 0.3 (0.2-1.0) mg/dL AST 11 (10-42) IU/L ALT 8 L (10-60) IU/L Alkaline Phosphatase 64 (42-121) IU/L Total Protein 6.9 (6.4-8.9) g/dL Albumin 4.0 (3.2-5.5) g/dL Globulin 2.9 (2.1-4.2) g/dL Albumin/Globulin Ratio 1.4 (1.0-2.2) Lipase 20 (11-82) U/L Urine Color YELLOW Urine Clarity CLEAR (CLEAR) Urine pH 6.0 (5.0-7.5) PH Ur Specific [place] 1.010 (1.002-1.030) Urine Protein NEGATIVE (NEGATIVE) mg/dL Urine Glucose (UA) NEGATIVE (NEGATIVE) mg/dL Urine Ketones NEGATIVE (NEGATIVE) mg/dL Urine Occult Blood NEGATIVE (NEGATIVE) Urine Nitrite POSITIVE H (NEGATIVE) Urine Bilirubin NEGATIVE (NEGATIVE) Urine Urobilinogen 0.2 (NORMAL) (NORMAL) E.U./dL Ur Leukocyte Esterase SMALL H (NEGATIVE) Urine RBC 0-5 (0-5) /HPF Urine WBC 11-25 H (0-3) /HPF Urine WBC Clumps PRESENT Ur Squamous Epith Cells RARE Squamous (<= Few) Urine Bacteria Many H (None Seen) /HPF Ur Microscopic Review INDICATED Urine Culture Comments INDICATED Assessment/Plan Problem List (1) Pancreatitis: Impression: History of alcoholic pancreatitis, presented with epigastric pain, nausea, vomiting, diarrhea. Imaging in the ER was concerning for pancreatitis, and patient had lipase of 20. Patient also has history of gastritis. Elements of both pancreatitis and gastritis could be at play here, will manage both. Received 2 L fluid bolus in the ER NS at 125 Advancing diet, tolerated full liquid with lunch, trialing bland diet for dinner Maalox as needed Qualifiers: Acute pancreatitis complication: no infection or necrosis Chronicity: a cute Pancreatitis type: alcohol induced Qualified Code(s): K85.20 - Alcohol induced acute pancreatitis without necrosis or infection (2) TAJ (acute kidney injury): Impression: Patient has a mild TAJ with a creatinine of 1.4. He is on fluids as described above. BMP in a.m. (3) Hypothyroid: Impression: Continue levothyroxine. Qualifiers: Hypothyroidism type: unspecified Qualified Code(s): E03.9 - Hypothyroidism, unspecified
[2025-09-20] MEDS: NICOTINE 21 MG PATCH TOP SCH (18:40)
[2025-09-20] MEDS: PANTOPRAZOLE 40 MG TABLET PO SCH (20:39)
[2025-09-21] MEDS ORDERED: MAG HYDROX/AL HYDROX/SIMETH 30 ML UDC PO PRN (02:19)
[2025-09-21] MEDS: SODIUM CHLORIDE FLUSH 0.9% 10 ML SYRINGE IVP PRN (05:13)
[2025-09-21 06:00] LABS: HCT - HEMATOCRIT 34.2 % (42.0-52.0); HGB - HEMOGLOBIN 10.6 g/dL (14.0-18.0); MEAN PLATELET VOLUME 9.4 fL (7.4-11.4); NRBC ABSOLUTE COUNT (AUTO) 0.00 x10^3/uL; NUCLEATED RED BLOOD CELLS AUTO 0.0 /100WBC; PLT - PLATELET COUNT 232 10^3/uL (130-450); RED CELL DISTRIBUTION WIDTH 13.2 % (12.0-15.0)
[2025-09-21] MEDS: LEVOTHYROXINE 112 MCG TABLET PO SCH (06:13)
[2025-09-21 06:18] LABS: BUN - BLOOD UREA NITROGEN 23.0 mg/dL (6-20); CARBON DIOXIDE - CO2 24.0 mmol/L (21-32); CREATININE 1.1 mg/dL (0.6-1.3); GFR - MDRD 65.0 (>89)
[2025-09-21] MEDS ORDERED: NICOTINE 21 MG PATCH TOP SCH (09:00)
--- NOTE | 2025-09-21 11:23 | Discharge Summary ---
Discharge Summary Admit Date: 09/19/25 Discharge Date: 09/21/25 Discharging Provider: Nader Gonzalez Primary Care Provider: Ki Espinoza Code Status: Attempt Resuscitation DIAGNOSES Discharge Diagnoses with Status of Each Condition: Acute pancreatitismeets criteria for pancreatitis with epigastric pain and concern for pancreatic inflammation on CT scan. Able to tolerate food now UTIDC on Augmentin HPI History of Present Illness: 75yoM with a history of COPD, GERD, ETOH abuse. He presented with abdominal pain and nausea that started the day prior to presentation. He describe the pain as cramping. pain was initially generalized but then localized to the epigastric area. he has had nausea/vomitting and diarrhea assoicated with the abdominal pain. He has had poor oral intake adn has felt increasingly weak and lightheaded. he has not had any recent sick contacts. he denies fevers or chills. CT demonstrated findings consistent with acute pancreatitis. He states his last drink was 4 months ago. HOSPITAL COURSE Hospital Course: Patient was admitted to the hospital and started on aggressive IV fluid resuscitation and bowel rest. He is able to tolerate regular diet today. He was incidentally noted to have UA concerning for UTI and preliminary urine cultures with greater than 100,000 CFU gram-negative bacteremia. He was placed on Rocephin while inpatient, and is discharging on Augmentin. I sent him home with Juan to help manage his symptoms, instructed him to follow-up with PCP ALLERGIES Allergies Allergy/AdvReac Type Severity Reaction Status Date / Time No Known Drug Allergies Allergy Verified 09/19/25 17:41 MEDICATIONS Ambulatory Orders Medication Instructions Recorded Confirmed hydroxyzine HCl 25 mg tablet 25 mg PO TID PRN sleep an d anxiety 02/16/23 09/20/25 pantoprazole 40 mg tablet,delayed 40 mg PO BID 3 09/20/25 release azelastine 137 mcg (0.1 %) nasal 1 spray intranasal Q6 HR PRN 05/27/25 09/20/25 spray allergy symptoms fluticasone furoate 100 1 inh inhalation DAILY 05/2709/20/25 mcg/actuation blister powder for inhalation (Arnuity Ellipta) levothyroxine 112 mcg tablet 112 mcg PO QDAC 05/27/25 09/20/25 losartan 100 mg tablet 100 mg PO DAILY 05/27/2503/10 umeclidinium 62.5 mcg/actuation 1 inh inhalation DAILY 05/27/25 09/20/25 blister powder for inhalation (Incruse Ellipta) albuterol sulfate 90 mcg/actuation 1 - 2 inh inhalatio n Q6H PRN COPD 09/20/25 09/20/25 aerosol inhaler duloxetine 30 mg capsule,delayed 30 mg PO DAILY 09/20/25 release Augmentin 875 mg-potassium 1 tab PO BID 3 days #6 tabs 09/21/25 clavulanate 125 mg tablet aluminum-mag hydroxide-simethicone 30 ml PO Q4HR PRN I ndigestion 10 09/21/25 200 mg-200 mg-20 mg/5 mL oral susp days #3,000 mL (Mag-Al Plus) ondansetron HCl 4 mg tablet 4 mg PO Q8H PRN nausea and 09/21/25 vomiting #30 tabs PHYSICAL EXAM AT DISCHARGE Vital Signs: Vital Signs x48h Temp Pulse Resp BP Pulse Ox 09/21/25 12:44 98.1 F 76 18 145/83 H 94 09/21/25 12:18 97.7 F 66 16 158/74 H 93 Physical Exam Other/Comments: General Appearance: positive No acute distress and Alert Eyes Bilateral: positive Normal inspection ENT: positive ENT inspection nml Neck: positive Nml inspection Respiratory: positive Chest non-tender and No respiratory distress Cardiovascular: positive Regular rate & rhythm Abdomen: negative Non-tender Skin: positive Color nml Extremities: positive Non-tender Neurologic/Psychiatric: positive Oriented x3 LABS 09/21/25 05:18 09/21/25 05:18 FOLLOW UP Follow Up: With PCP TIME SPENT Time Spent in Discharge (Minutes): 38 Discharge Plan Discharge Patient Disposition: Home, Self Care Condition: Good Prescriptions: New alum-mag hydroxide-simeth [Mag-Al Plus] 200-200-20 mg/5 mL Suspension 30 ml PO Q4HR PRN (Reason: Indigestion) 10 Days Qty: 3000 0RF amoxicillin-pot clavulanate 875-125 mg tablet 1 tab PO BID 3 Days Qty: 6 0RF ondansetron HCl 4 mg tablet 4 mg PO Q8H PRN (Reason: nausea and vomiting) Qty: 30 0RF Continued pantoprazole 40 MG tablet,delayed release (DR/EC) 40 mg PO BID hydroxyzine HCl 25 MG tablet 25 mg PO TID PRN (Reason: sleep and anxiety) Rx Instructions: up to 3x daily as needed PRN azelastine 137 mcg (0.1 %) spray,non-aerosol 1 spray INTRANASAL Q6HR PRN (Reason: allergy symptoms) Patient Comments: inhale 1 spray into each nostril four times a day if needed losartan 100 mg tablet 100 mg PO DAILY levothyroxine 112 mcg tablet 112 mcg PO QDAC Incruse Ellipta 62.5 mcg/actuation blister with device 1 inh inhalation DAILY Patient Comments: inhale 1 puff by mouth and INTO THE LUNGS once daily fluticasone furoate [Arnuity Ellipta] 100 mcg/actuation blister with device 1 inh INHALATION DAILY Patient Comments: inhale 1 puff by mouth and INTO THE LUNGS once daily Rinse mouth after use albuterol sulfate 90 mcg/actuation HFA aerosol inhaler 1 - 2 inh INHALATION Q6H PRN (Reason: COPD) duloxetine 30 mg capsule,delayed release(DR/EC) 30 mg PO DAILY Activity Restrictions: No Restrictions Diet: Regular Health Concerns: You came into the hospital for abdominal pain. You have history of gastritis and pancreatitis, and both are likely in play at this time. You were admitted and started on bowel rest with aggressive IV fluid therapy, and are much better today. I would recommend a bland diet for the next few days while your body recovers. You were also noted to have a UTI, so I'm sending you home with augmentin. Please call your PCP's office and schedule a follow up appointment. Please try the maalox for your abdominal pain as needed as that has helped you while in the hospital. I am also sending you with a prescription for zofran for nausea Print Language: Palestinian Patient Instructions: ED Pancreatitis Stand Alone Forms: PCP List Follow-up Care: YARELI ESPINOZA MD [Primary Care Provider, Family Practice] Vitals documented within 30 minutes of discharge?: Yes
[2025-09-21 12:47] VITALS: BP 145/83; TEMP 98.1; O2SAT 94
== END 2025-09-21 13:10 | disposition home or self-care (01) | DRG 439 ==
LOC: MS3 17:28 → ED 17:28 → MS3 22:27
PROVIDERS: ADMIT Hospitalist; ATTEND Nurse Practitioner Acute Care
DX: Z79.899 Other long term (current) drug therapy; J43.9 Emphysema, unspecified; K85.20 Alcohol induced acute pancreatitis without necrosis or infection; Z66 Do not resuscitate; Z79.890 Hormone replacement therapy; K21.9 Gastro-esophageal reflux disease without esophagitis; I10 Essential (primary) hypertension; J44.9 Chronic obstructive pulmonary disease, unspecified; N17.9 Acute kidney failure, unspecified; Z87.891 Personal history of nicotine dependence; N39.0 Urinary tract infection, site not specified; E03.9 Hypothyroidism, unspecified; F10.10 Alcohol abuse, uncomplicated